=== PATIENT | female | born 1995 | race Caucasian/White ===

== ENCOUNTER 2017-11-03 16:50 | Emergency (ER) | payer SELFPAY ==
[~2017-11-03] VITALS: Ht 160 cm; Wt 65.8 kg
[2017-11-03 16:56] VITALS: BP 113/53
== END 2017-11-03 17:27 | disposition home or self-care (01) ==
LOC: ER 16:52
DX: J06.9 Acute upper respiratory infection, unspecified (principal)
CPT/HCPCS: 99281; A4606; Z7610; Z7502

== ENCOUNTER 2023-01-09 18:19 | Emergency (ER) | payer SELFPAY ==
[~2023-01-09] VITALS: Ht 157.5 cm; Wt 108.9 kg
[2023-01-09] MEDS ORDERED: IBUPROFEN 400 MG TABLET ONE (18:58)
[2023-01-09] MEDS ORDERED: IBUPROFEN 400 MG TABLET PO ONE (19:00)
[2023-01-09 19:54] VITALS: BP 134/73; TEMP 98.7; O2SAT 100
== END 2023-01-09 19:59 | disposition home or self-care (01) ==
LOC: ER 18:23
DX: S82.492A Other fracture of shaft of left fibula, initial encounter for closed fracture (principal); X58.XXXA Exposure to other specified factors, initial encounter; Y93.89 Activity, other specified; Y92.89 Other specified places as the place of occurrence of the external cause; Y99.8 Other external cause status
CPT/HCPCS: 73590-TC; 73610-TC